=== PATIENT | male | born 1970 | race Caucasian/White ===

== ENCOUNTER → 2017-11-13 | Outpatient (CLI) | payer BC ==
--- NOTE | 2017-11-13 16:40 | CONS ---
CONSULTATION REASON FOR CONSULTATION: Consultation note for sleep apnea. PRIMARY CARE PHYSICIAN: Dr. Woody Deluca. 46-year-old male patient, referred to me for evaluation of sleep apnea. He has loud snoring. He stops breathing at night and occasionally wakes up gasping for air. He also has symptoms of nocturia. He goes to bed around 10:00 pm, wakes up at 5:30 a.m. in the morning and he feels tired and sleepy during the day. He can even snooze and takes naps at work if he is given the opportunity to do so. 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 Never been involved in a motor vehicle accident. He claims to drive long distances without having to fall asleep. His current [place] score is 11. His weight has been fluctuating, he is trying to diet for now and he has lost around 15 pounds. Nevertheless despite his weight loss, his BMI is 52.8. PAST MEDICAL HISTORY: Hypertension and erectile dysfunction. Hypotestosteronism, allergic rhinitis and the patient is a mouth breather. PAST SURGICAL HISTORY: Includes tonsillectomy, biceps tendon repair, vasectomy and left earlobe surgery. SOCIAL HISTORY: The patient is a nonsmoker. No history of alcohol. No history of IV drugs. OUTPATIENT MEDICATION LIST: Includes Hyzaar, testosterone, Cialis, Claritin, Zyrtec and aspirin. FAMILY HISTORY: Negative for sleep apnea. REVIEW OF SYSTEMS: 12-point review of system was done. No history of insomnia. No history of grinding of the teeth. No sleepwalking. No anxiety or panic attacks. No depression. No palpitation. No heartburn. No restlessness in lower extremities. No problems with memory and concentration. No headaches. No cough or sputum production. No angina. PHYSICAL EXAMINATION: BP is 111/68, pulse 72, respirations 20, temperature 98.4. Saturation 94% on room air. [place] score is 11. Neck size 21.5. Body weight is 117.4, and height is 62. General appearance: Obese, calm, comfortable. Head is atraumatic, normocephalic. Neck: Short neck. Crowding in the posterior pharynx. Mallampati class IV. There is no goiter or neck masses. LUNGS: Clear to auscultation. HEART: Sounds regular rhythm. Normal S1, S2. No S3. No murmurs. ABDOMEN: Soft, nontender. There is no organomegaly. No direct tenderness. No rebound or guarding. Extremities trace edema. There is no cyanosis or clubbing. NEUROLOGIC: The patient is alert and oriented x3. There is no focal neurological deficits. Psychiatric: Negative for anxiety or depression. SKIN: Negative for any wounds or ulceration. IMPRESSION: 1. Obstructive sleep apnea. Strongly suspected on clinical grounds. In addition, the patient has anatomic features to support diagnosis including a BMI 52.8, and neck size of 21.5 along with Mallampati class 4. 2. Hypersomnia with an [place] score of 11. 3. Obesity with BMI 52.8. 4. Hypertension. 5. Erectile dysfunction. 6. Hypotestosteronism. 7. Allergic rhinitis. PLAN: 1. Encourage weight loss. 2. Optimize sleep hygiene measures. 3. Avoid driving especially when feeling drowsy or sleepy. 4. Proceed with a screening polysomnogram, high suspicion for obstructive sleep apnea in general in this patient. MMODL / IJN: [id number] /
== END | disposition home or self-care (01) ==
LOC: SLEEP 13:14
PROVIDERS: ATTEND Internal Medicine Critical Care Medicine
DX: G47.33 Obstructive sleep apnea (adult) (pediatric) (principal); G47.10 Hypersomnia, unspecified; E66.9 Obesity, unspecified; I10 Essential (primary) hypertension; N52.9 Male erectile dysfunction, unspecified; E29.1 Testicular hypofunction; J30.9 Allergic rhinitis, unspecified; Z68.43 Body mass index [BMI] 50.0-59.9, adult; Z79.82 Long term (current) use of aspirin; Z79.899 Other long term (current) drug therapy; Z90.89 Acquired absence of other organs; Z98.890 Other specified postprocedural states
CPT/HCPCS: 99211

== ENCOUNTER → 2018-03-05 | Outpatient (CLI) | payer BC ==
--- NOTE | 2018-03-05 18:02 | PN ---
PROGRESS NOTE This is a 47-year-old male patient with a diagnosis of severe obstructive sleep apnea with an AHI of 91. The patient is coming in for a compliancy check. I performed a CPAP titration on this patient. The patient failed to respond to CPAP therapy due to poor tolerability, and ultimately the patient was started with a BiPAP. Currently the patient has a VPAP auto with a minimum pressure of 7, maximum pressure of 15, pressure support of 4. He is coming in for a compliancy check. He reports marked improvement in his sleep quality and he is benefitting from the treatment. He is waking up alert and refreshed during the day. He does not have to take any naps during the day. This has been an excellent positive response to BiPAP therapy. In terms of his compliancy, the patient has been utilizing his BiPAP more than 4 hours 26/30 days over the past one month. His average pressures are 14.9/10.9. His leak factor is 46 L/minute. His AHI while on treatment is down to 5.4 and he is using a large-sized Kayleen View full-face mask. His weight is down from 417 to 401. He is feeling great. He has no specific complaints. [place] score is down to 5. REVIEW OF SYSTEMS: Twelve-point review of systems was done. No chest pain. No shortness of breath. Waking up much more refreshed and alert during the day. He does not fall asleep during the day. No headaches. No altered mentation. No erectile dysfunction at this point in time. No symptoms of rhinitis. PHYSICAL EXAMINATION: BP is 99/53, pulse 62, respirations 18, temperature 97.9. Weight is 401. GENERAL APPEARANCE: Calm, comfortable. No acute distress. Head is atraumatic, normocephalic. Neck is short, supple. Crowding of posterior pharynx, Mallampati class IV. There is no goiter or neck masses. LUNGS: Clear to auscultation. Heart sounds are regular rate and rhythm. Normal S1, S2. No S3, S4. No murmurs. ABDOMEN: Soft, nontender, obese. Organs cannot be adequately palpated. There was no direct tenderness, rebound tenderness or guarding. EXTREMITIES: No edema. No cyanosis or clubbing. IMPRESSION: 1. Severe symptomatic obstructive sleep apnea with an AHI of 91.7. The patient is undergoing successful VPAP auto titration and treatment. 2. Nocturnal oxygen desaturation improved with BiPAP therapy. 3. Hypersomnia, improved with BiPAP therapy. [place] score is down to 5. 4. Obesity, morbid, with a body mass index of 53. 5. The patient has lost 16 pounds since last evaluation. 6. Hypertension. 7. Erectile dysfunction. 8. Allergic rhinitis. PLAN: The patient is responding. The patient is on VPAP auto. Keep the same settings. Compliance was checked and the numbers are excellent. Encourage further weight loss. Continue Kayleen View full-face mask. See me back in a year's time, earlier if needed. MMODL / IJN: [id number] /
== END | disposition home or self-care (01) ==
LOC: SLEEP 15:54
PROVIDERS: ATTEND Internal Medicine Critical Care Medicine
DX: G47.33 Obstructive sleep apnea (adult) (pediatric) (principal); E66.01 Morbid (severe) obesity due to excess calories; I10 Essential (primary) hypertension; N52.9 Male erectile dysfunction, unspecified; J30.9 Allergic rhinitis, unspecified; Z68.43 Body mass index [BMI] 50.0-59.9, adult; Z99.89 Dependence on other enabling machines and devices

== ENCOUNTER → 2019-03-25 | Outpatient (CLI) | payer BC ==
--- NOTE | 2019-03-25 18:33 | PN ---
PROGRESS NOTE Rivas is 48, coming in for a CPAP check regarding his obstructive sleep apnea. The patient has severe GAVINO with an AHI of 91. The patient is using a VPAP auto and the current setting is at an EPAP of 7, IPAP of 15, with a pressure support of 4. He is in a VPAP automatic mode. He has lost around 60 pounds since his last evaluation. He used to weigh 401 pounds and is currently down to 336. Based on the compliance data, he demonstrates good use, although there is some more room for improvement. Based on available data, the patient has been using the VPAP every night, and the VPAP use for more than 4 hours is / days, averaging around 4.6 hours of use per night. The tidal volume is at 620 with a respiratory rate of 16, ventilation of 10.5 with a leak of 30 L/minute. He is using an Kayleen View full-face mask. He has no other complaints otherwise. He is committed to the treatment. He already feels clinical improvement and his [place] score is down to 4. He is committed to increase the number of hours of VPAP use per night. REVIEW OF SYSTEMS: Fourteen-point review of systems was done. Positive findings are all mentioned above in the history of present illness. Of significance is the positive weight loss that the patient has encountered. No major hypersomnia or sleepiness. He continues to lose weight. He has history of chronic allergic rhinitis and erectile dysfunction. No altered mentation. No headaches. No seizure activity. No anxiety or depression. No chest pain, palpitations or pleurisy. No cough or sputum production. No hemoptysis. No nausea or vomiting. No falls. No wounds or ulcerations. No other complaints. PHYSICAL EXAMINATION: VITAL SIGNS: BP is 154/85, pulse 86, respirations 16, temperature 99.5, saturation 97% on room air. Height is 6 feet 2 inches, weight 336, and BMI is 43.1. GENERAL APPEARANCE: Calm, comfortable. HEAD: Atraumatic, normocephalic. NECK: Supple. There is no JVD. No goiter or neck mass. Mallampati class IV. LUNGS: Clear to auscultation. HEART: Heart sounds are regular rate and rhythm. Normal S1, S2. No S3, S4. No murmurs. ABDOMEN: Soft, nontender. No organomegaly. EXTREMITIES: No edema. No cyanosis or clubbing. IMPRESSION: 1. Severe obstructive sleep apnea; apnea/hypopnea index of 91. The patient is on VPAP auto with successful treatment, based on the above-mentioned setting and compliancy information. 2. Hypersomnia, improved. [place] score is down to 4. 3. Morbid obesity with significant weight loss on the order of more than 60 pounds. BMI is down to 43.1. 4. Limited air leaks around the mask. The patient is using an AmaraView full-face mask. 5. Hypertension. 6. Allergic rhinitis. 7. Erectile dysfunction. PLAN: 1. Encourage further weight loss. 2. Continue VPAP auto. The average pressure used is 14/10 cm of water, which is less than the maximum pressure set on the machine. 3. Continue the same mask interface. 4. Optimize sleep hygiene measures. 5. Will continue to follow. See me back in a year's time. Treatment is successful for now. MMODL / IJN: [id number] /
== END | disposition home or self-care (01) ==
LOC: SLEEP 14:59
PROVIDERS: ATTEND Internal Medicine Critical Care Medicine
DX: G47.33 Obstructive sleep apnea (adult) (pediatric) (principal); E66.01 Morbid (severe) obesity due to excess calories; I10 Essential (primary) hypertension; J30.9 Allergic rhinitis, unspecified; N52.9 Male erectile dysfunction, unspecified; Z68.41 Body mass index [BMI] 40.0-44.9, adult; Z99.89 Dependence on other enabling machines and devices

== ENCOUNTER → 2020-08-31 | Outpatient (CLI) | payer BC ==
--- NOTE | 2020-08-31 16:30 | PN ---
PROGRESS NOTE This is a morbidly obese 49-year-old male patient coming in for a compliancy check regarding his obstructive sleep apnea. The patient has severe GAVINO with an AHI of 91. The patient is currently utilizing a VPAP auto at a minimum pressure of 7, maximum pressure of 15 with a pressure support of 4. This is the same setting that the patient was on approximately 1-1/2 years back. He remains extremely compliant. During COVID pandemic, the patient has gained significant amount of weight in the order of 33 pounds and currently is up to 369 pounds from a baseline of 336. Despite all this, the patient remains compliant. The patient is still seeing adequate response from VPAP auto. Current setting includes a minimum pressure of 7, maximum pressure of 15 with a pressure support of 4. The patient is using a large-sized Kayleen View full-face mask. Based on a 30-day compliancy, the patient has been averaging 7 hours of VPAP use per night and VPAP use for more than 4 hours at 70%. His average pressure delivered by the machine is around 14.9/10.9. Leak is in the order of 38 L/minutes. Tidal volume is at 700 with a rate of 16, ventilation is 12 L/minute. His AHI is down to 3.1. He is waking up refreshed. He is doing night shifts. He goes to work between 7 p.m. and 7 a.m. and he goes to bed around 9 a.m. gets out of bed at around 2 p.m. and he is refreshed and rested and the patient does not take any naps during the day. Overall, doing well and he has no specific complaints for now. REVIEW OF SYSTEMS: Fourteen-point review of system was done and positive findings are mentioned om history of present illness. His condition is stable. The patient has no major complaints. His [place] score is down to 5. PHYSICAL EXAMINATION: VITAL SIGNS: Blood pressure is 163/111, pulse 96, respirations 16, temperature is 98.3, saturation 97% on room air. Height is 6 feet 2 inches, weight is 369 and BMI is 46.7. GENERAL APPEARANCE: Calm, comfortable. No acute distress. HEAD: Atraumatic, normocephalic. NECK: Supple. There is no JVD. No goiter or neck masses. LUNGS: Clear to auscultation. HEART: Sounds are regular rate and rhythm. Normal S1, S2. No S3, no S4. No murmurs. ABDOMEN: Soft, nontender. No organomegaly. EXTREMITIES: No edema. No cyanosis or clubbing. NEUROLOGICALLY: The patient is awake and alert. There are no focal neurological deficits. IMPRESSION: 1. Severe symptomatic obstructive sleep apnea with an AHI of 91. Currently on VPAP automatic with adequate clinical response and compliancy. The patient has demonstrated excellent VPAP auto use over the past 2 years and he has no major issues for now. 2. Hypersomnia, recovered. [place] score is down to 5. 3. Morbid obesity with interval weight gain. Current weight is up to 369 pounds. 4. Hypertension with poorly controlled blood pressure. 5. Allergic rhinitis. 6. Erectile dysfunction. PLAN: 1. Keep same BiPAP setting. 2. Encourage weight loss. 3. Noted elevation of blood pressure and strongly advised the patient to go back to primary care physician for a tighter blood pressure control. This is obviously a risk factor for cardiovascular disease. 4. Tight control of cardiovascular risk factors. 5. Implement good sleep hygiene measures. 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 The patient has done well treated with VPAP auto. No change in his mask interface and no change in the mask type. 6. Will continue to follow. MMODL / IJN: [id number] /
== END | disposition home or self-care (01) ==
LOC: SLEEP 14:44
PROVIDERS: ATTEND Internal Medicine Critical Care Medicine
DX: G47.33 Obstructive sleep apnea (adult) (pediatric) (principal); E66.01 Morbid (severe) obesity due to excess calories; I10 Essential (primary) hypertension; J30.9 Allergic rhinitis, unspecified; N52.9 Male erectile dysfunction, unspecified; Z99.89 Dependence on other enabling machines and devices